=== PATIENT | female | born 1985 | race Caucasian/White ===

== ENCOUNTER → 2016-04-24 | Outpatient (CLI) | payer BC | LOC: LABWHC1 17:31 | PROVIDERS: ATTEND Obstetrics & Gynecology | DX: O20.0 Threatened abortion (principal); Z3A.00 Weeks of gestation of pregnancy not specified | CPT/HCPCS: 36415; 84702; 86850; 86900; 86901 ==

== ENCOUNTER → 2016-05-01 | Outpatient (CLI) | payer BC | END | disposition home or self-care (01) | LOC: LABWHC1 13:04 | PROVIDERS: ATTEND Family Medicine | DX: O03.9 Complete or unspecified spontaneous abortion without complication (principal) | CPT/HCPCS: 36415; 84702 ==

== ENCOUNTER → 2016-05-08 | Outpatient (CLI) | payer BC | LOC: LABWHC1 15:43 | PROVIDERS: ATTEND Family Medicine | DX: O03.9 Complete or unspecified spontaneous abortion without complication (principal); Z3A.00 Weeks of gestation of pregnancy not specified | CPT/HCPCS: 36415; 84702 ==

== ENCOUNTER → 2016-05-15 | Outpatient (CLI) | payer BC | LOC: LABWHC1 15:18 | PROVIDERS: ATTEND Family Medicine | DX: O03.9 Complete or unspecified spontaneous abortion without complication (principal); Z3A.00 Weeks of gestation of pregnancy not specified | CPT/HCPCS: 36415; 84702 ==

== ENCOUNTER → 2016-05-21 | Outpatient (CLI) | payer BC | LOC: LABWHC1 14:56 | PROVIDERS: ATTEND Family Medicine | DX: O03.9 Complete or unspecified spontaneous abortion without complication (principal); Z3A.00 Weeks of gestation of pregnancy not specified | CPT/HCPCS: 36415; 84702 ==

== ENCOUNTER → 2017-01-13 | Outpatient (CLI) | payer BC ==
[2017-01-13 17:24] LABS: Basophils % (A) 1 %; CH 25.9; CHCM 30.9; Eosinophils # (A) 0.5 k/uL (0-0.7); Eosinophils % (A) 6 %; HCT 39.8 % (34.0-46.0); HDW 2.07; HGB 12.5 gm/dL (11.4-16.0); Luc # (Auto) 0.28; Luc % (Auto) 4; Lymphocytes # (A) 2.7 k/uL (1.0-4.8); Lymphocytes % (A) 34 %; MCH 26.3 pg (25.0-35.0); MCHC 31.3 g/dL (31.0-37.0); MCV 84.1 fL (80.0-100.0); Mean Platelet Volume 8.9; Monocytes # (A) 0.8 k/uL (0-1.0); Monocytes % (A) 10 %; Neutrophils # (A) 3.7 k/uL (1.3-7.7); Neutrophils % (A) 46 %; RBC 4.74 m/uL (3.80-5.40); RDW 12.8 % (11.5-15.5); WBC (Perox) 8.23
[2017-01-13 17:49] LABS: ALT 44 U/L (9-52); AST 17 U/L (14-36); Alkaline Phosphatase 75 U/L (38-126); Anion Gap 10 mmol/L; Blood Urea Nitrogen 17 mg/dL (7-17); Calcium 9.2 mg/dL (8.4-10.2); Carbon Dioxide 26 mmol/L (22-30); Chloride 106 mmol/L (98-107); Glucose 75 mg/dL (74-99); Non-African American GFR(MDRD) >60 (>60 ml/min/1.73 sqM); Potassium 4.1 mmol/L (3.5-5.1); Sodium 142 mmol/L (137-145); Total Bilirubin 0.1 mg/dL (0.2-1.3); Total Protein 6.7 g/dL (6.3-8.2)
== END | disposition home or self-care (01) ==
LOC: LABWHC1 16:12
PROVIDERS: ATTEND Family Medicine
DX: E04.9 Nontoxic goiter, unspecified (principal); R00.0 Tachycardia, unspecified
CPT/HCPCS: 36415; 80053; 84439; 84443; 84480; 85025

== ENCOUNTER → 2017-01-15 | Outpatient (CLI) | payer BC ==
--- NOTE | 2017-01-15 14:06 | US ---
EXAMINATION TYPE: US thyroid st tissue head/neck DATE OF EXAM: 01/15/2017 COMPARISON: NONE CLINICAL HISTORY: 31-year-old female E04.0 Enlarged Thyroid. TECHNIQUE: Multiple sonographic images of the thyroid gland are obtained. FINDINGS: Right Lobe: 4.6 x 1.2 x 1.8 cm Left Lobe: 5.4 x 1.7 x 2.0 cm Isthmus Thickness: 0.3 cm There is no discrete nodule. The thyroid gland parenchyma is diffusely heterogeneous and hyperemic. Bilateral neck scanned, no evidence of lymphadenopathy. IMPRESSION: 1. Borderline to mild thyromegaly with diffusely heterogeneous and hyperemic gland. Correlate for dif fuse thyroiditis. 2. No discrete nodule.
== END | disposition home or self-care (01) ==
LOC: RADUSWWP 13:29
PROVIDERS: ATTEND Family Medicine
DX: E01.0 Iodine-deficiency related diffuse (endemic) goiter (principal)
CPT/HCPCS: 76536

== ENCOUNTER → 2017-03-01 | Outpatient (CLI) | payer BC ==
[2017-03-01 14:21] LABS: HCT 42.6 % (34.0-46.0); HGB 13.8 gm/dL (11.4-16.0); MCH 26.6 pg (25.0-35.0); MCHC 32.5 g/dL (31.0-37.0); MCV 81.9 fL (80.0-100.0); Mean Platelet Volume 9.3; Platelet Count 220 k/uL (150-450); RDW 13.9 % (11.5-15.5); WBC 9.8 k/uL (3.8-10.6)
[2017-03-01 14:38] LABS: ALT 48 U/L (9-52); AST 22 U/L (14-36); Albumin 4.2 g/dL (3.5-5.0); Alkaline Phosphatase 86 U/L (38-126); Anion Gap 13 mmol/L; Blood Urea Nitrogen 18 mg/dL (7-17); Calcium 9.7 mg/dL (8.4-10.2); Carbon Dioxide 27 mmol/L (22-30); Chloride 102 mmol/L (98-107); Glucose 84 mg/dL (74-99); Potassium 3.9 mmol/L (3.5-5.1); Sodium 142 mmol/L (137-145); Total Bilirubin 0.3 mg/dL (0.2-1.3); Total Protein 7.2 g/dL (6.3-8.2)
[2017-03-02 14:12] LABS: Thyroid Stim Immun Quant 5.99 IU/L (<0.10)
== END | disposition home or self-care (01) ==
LOC: LABWHC1 13:53
PROVIDERS: ATTEND Internal Medicine
DX: E05.90 Thyrotoxicosis, unspecified without thyrotoxic crisis or storm (principal)
CPT/HCPCS: 36415; 80053; 83519; 84439; 84443; 84445; 84481; 85027; 86376

== ENCOUNTER → 2017-04-14 | Outpatient (CLI) | payer BC, MEDICAID ==
[2017-04-14 09:51] LABS: HCT 41.2 % (34.0-46.0); HGB 13.2 gm/dL (11.4-16.0); MCH 26.8 pg (25.0-35.0); MCV 83.7 fL (80.0-100.0); Mean Platelet Volume 8.1; Platelet Count 215 k/uL (150-450); RBC 4.92 m/uL (3.80-5.40); RDW 13.3 % (11.5-15.5); WBC 7.9 k/uL (3.8-10.6)
[2017-04-14 12:06] LABS: ALT 27 U/L (9-52); AST 15 U/L (14-36); Albumin 4.2 g/dL (3.5-5.0); Alkaline Phosphatase 77 U/L (38-126); Anion Gap 10 mmol/L; Blood Urea Nitrogen 11 mg/dL (7-17); Calcium 9.7 mg/dL (8.4-10.2); Carbon Dioxide 28 mmol/L (22-30); Chloride 105 mmol/L (98-107); Glucose 77 mg/dL (74-99); Potassium 4.1 mmol/L (3.5-5.1); Sodium 143 mmol/L (137-145); Total Bilirubin 0.7 mg/dL (0.2-1.3)
[2017-04-14 12:52] LABS: T4, Free (Free Thyroxine) 1.97 ng/dL (0.78-2.19)
== END | disposition home or self-care (01) ==
LOC: LABWHC1 09:26
PROVIDERS: ATTEND Internal Medicine
DX: E05.90 Thyrotoxicosis, unspecified without thyrotoxic crisis or storm (principal)
CPT/HCPCS: 36415; 80053; 84439; 84443; 84481; 85027

== ENCOUNTER 2017-05-04 12:58 | Emergency (ER) | payer OTHER ==
[2017-05-04 13:33] VITALS: BP 150/84; PULSE 94; RESP 17; TEMP 97.3
--- NOTE | 2017-05-04 13:46 | ED ---
General Adult HPI - General Chief complaint: [place]/Exposure Stated complaint: [facility]-Exposure Time Seen by Provider: 05/04/17 13:22 Source: patient, RN notes reviewed Mode of arrival: ambulatory Limitations: no limitations - History of Present Illness Initial comments: This is a 32-year-old female who presents to the emergency department with chief complaint of post exposure. 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 She states that before presenting to the emergency department she was drawing an HIV-positive patient. She states that while he was speaking he spit and it touched her lips and may have entered her mouth. She states that initially she just wiped it away with her hand and scrubs. When patient left the lab she then wiped her mouth with an alcohol swab. Denies fever, chills, chest pain, shortness of breath, abdominal pain, nausea or vomiting, constipation or diarrhea, dysuria or hematuria, numbness or tingling, headache or vision changes. - Related Data Home Medications Medication Instructions Recorded Confirmed Calcium Carbonate/Vitamin D3 1 tab PO DAILY 02/18/15 02/18/15 [Calcium 600 + Vit D Tablet] Pnv,Calcium 72/Iron/Folic Acid 1 tab PO DAILY 02/18/15 02/18/15 [Pnv Plus Multivit Tab] Previous Rx's Medication Instructions Recorded Acetaminophen-Codeine 300-30mg 2 each PO Q4HR PRN #30 tab 02/20/15 [Tylenol w/codeine #3] Ibuprofen [Motrin] 600 mg PO Q6HR PRN #30 tab 02/20/15 Allergies Allergy/AdvReac Type Severity Reaction Status Date / Time No Known Allergies Allergy Verified 02/18/15 06:26 Review of Systems ROS Statement: Those systems with pertinent positive or pertinent negative responses have been documented in the HPI. ROS Other: All systems not noted in ROS Statement are negative. Past Medical History Past Medical History: Thyroid Disorder Additional Past Medical History / Comment(s): Graves disease History of Any Multi-Drug Resistant Organisms: None Reported Past Surgical History: Section Past Anesthesia/Blood Transfusion Reactions: No Reported Reaction Past Psychological History: No Psychological Hx Reported Smoking Status: Never smoker Past Alcohol Use History: None Reported Past Drug Use History: None Reported - Past Family History Mother Family Medical History: No Reported History General Exam - General Exam Comments Initial Comments: General: Awake and alert, well-developed; in no apparent distress. HEENT: Head atraumatic, normocephalic. Pupils are equal, round and reactive to light. Extraocular movements intact. Oropharynx moist without erythema or exudate. Neck: Supple. Normal ROM. Cardiovascular: Regular rate and rhythm. No murmurs, rubs or gallops. Chest symmetrical. Respiratory: Lungs clear to auscultation bilaterally. No wheezes, rales or rhonchi. Normal respiratory effort with no use of accessory muscles. Musculoskeletal: Normal ROM, no tenderness bilateral upper and lower extremities. Ambulating normally. Skin: [place], warm and dry without rashes or lesions. Neurological: Alert and oriented x3. CN II-XII grossly intact. Speech is fluent and answers are appropriate. No focal neuro deficits. Psychiatric: Normal mood and affect. No overt signs of depression or anxiety noted. Limitations: no limitations Course Vital Signs 05/04/17 13:29 Temperature 97.3 F L Pulse Rate 94 Respiratory 17 Rate Blood Pressure 150/84 O2 Sat by Pulse 97 Oximetry Medical Decision Making - Medical Decision Making This is a 32-year-old female who presents for [facility] post-exposure evaluation. Patient came into contact with saliva of a patient who is HIV positive. Labs were drawn and are pending. Case was discussed with attending physician, Dr. Younger. Postexposure prophylaxis is not indicated. Patient is to follow-up with [facility] as instructed. She is in no acute distress and will be discharged. All questions answered. Disposition Clinical Impression: Exposure to blood or body fluid Disposition: HOME SELF-CARE Condition: Good Instructions: Body Substance Exposure (ED) Additional Instructions: Please follow-up with [facility]. Please follow up with primary care provider within 1 -2 days. Return to emergency department if symptoms should worsen or any concerns arise. Referrals: Nancy Calero DO [Primary Care Provider] - 1-2 days Time of Disposition: 13:41
== END 2017-05-04 13:57 | disposition home or self-care (01) ==
LOC: EC 12:58
DX: Z77.21 Contact with and (suspected) exposure to potentially hazardous body fluids (principal); Z79.899 Other long term (current) drug therapy; X58.XXXA Exposure to other specified factors, initial encounter; Y99.0 Civilian activity done for income or pay
CPT/HCPCS: 99282

== ENCOUNTER → 2017-06-01 | Outpatient (CLI) | payer MEDICAID ==
[2017-06-01 12:00] LABS: HCT 42.6 % (34.0-46.0); HGB 13.6 gm/dL (11.4-16.0); MCH 27.1 pg (25.0-35.0); MCV 84.5 fL (80.0-100.0); Mean Platelet Volume 8.6; Platelet Count 217 k/uL (150-450); RBC 5.04 m/uL (3.80-5.40); RDW 13.4 % (11.5-15.5); WBC 12.2 k/uL (3.8-10.6)
[2017-06-01 12:07] LABS: ALT 26 U/L (9-52); AST 17 U/L (14-36); Albumin 4.4 g/dL (3.5-5.0); Alkaline Phosphatase 90 U/L (38-126); Anion Gap 15 mmol/L; Blood Urea Nitrogen 14 mg/dL (7-17); Calcium 9.4 mg/dL (8.4-10.2); Carbon Dioxide 24 mmol/L (22-30); Chloride 103 mmol/L (98-107); Glucose 85 mg/dL (74-99); Sodium 142 mmol/L (137-145); Total Bilirubin 0.6 mg/dL (0.2-1.3); Total Protein 7.3 g/dL (6.3-8.2)
== END | disposition home or self-care (01) ==
LOC: LABWHC1 11:02
PROVIDERS: ATTEND Internal Medicine
DX: E05.90 Thyrotoxicosis, unspecified without thyrotoxic crisis or storm (principal)
CPT/HCPCS: 36415; 80053; 84439; 84443; 84481; 85027

== ENCOUNTER → 2017-09-28 | Outpatient (CLI) | payer MEDICAID ==
[2017-09-28 11:33] LABS: HCT 42.2 % (34.0-46.0); HGB 13.8 gm/dL (11.4-16.0); MCH 28.6 pg (25.0-35.0); MCHC 32.8 g/dL (31.0-37.0); MCV 87.3 fL (80.0-100.0); Platelet Count 191 k/uL (150-450); RBC 4.83 m/uL (3.80-5.40); RDW 12.4 % (11.5-15.5); WBC 8.2 k/uL (3.8-10.6)
[2017-09-28 12:12] LABS: ALT 29 U/L (9-52); AST 20 U/L (14-36); Albumin 4.5 g/dL (3.5-5.0); Alkaline Phosphatase 66 U/L (38-126); Anion Gap 9 mmol/L; Blood Urea Nitrogen 15 mg/dL (7-17); Calcium 9.6 mg/dL (8.4-10.2); Carbon Dioxide 25 mmol/L (22-30); Chloride 106 mmol/L (98-107); Glucose 84 mg/dL (74-99); Potassium 4.5 mmol/L (3.5-5.1); Sodium 140 mmol/L (137-145); Total Bilirubin 0.6 mg/dL (0.2-1.3); Total Protein 7.4 g/dL (6.3-8.2)
[2017-09-28 12:18] LABS: T4, Free (Free Thyroxine) 1.32 ng/dL (0.78-2.19)
[2017-09-28 17:36] LABS: Vitamin D 25 Hydroxy 26.7 ng/mL (30.0-100.0)
== END | disposition home or self-care (01) ==
LOC: LABWHC1 10:21
PROVIDERS: ATTEND Internal Medicine
DX: E55.9 Vitamin D deficiency, unspecified (principal); E05.90 Thyrotoxicosis, unspecified without thyrotoxic crisis or storm; R53.82 Chronic fatigue, unspecified
CPT/HCPCS: 36415; 80053; 82306; 82607; 84439; 84443; 84481; 85027

== ENCOUNTER → 2017-12-24 | Outpatient (CLI) | payer MEDICAID ==
[2017-12-24 06:53] LABS: HCT 43.3 % (34.0-46.0); HGB 14.1 gm/dL (11.4-16.0); MCH 28.7 pg (25.0-35.0); MCHC 32.5 g/dL (31.0-37.0); MCV 88.1 fL (80.0-100.0); Mean Platelet Volume 8.6; Platelet Count 195 k/uL (150-450); RBC 4.91 m/uL (3.80-5.40); WBC 6.9 k/uL (3.8-10.6)
[2017-12-24 12:00] LABS: ALT 19 U/L (8-44); AST 21 U/L (13-35); Albumin/Globulin Ratio 1.95 (1.20-2.10); Alkaline Phosphatase 66 U/L (41-126); Calcium 9.2 mg/dL (8.7-10.3); Carbon Dioxide 24.6 mmol/L (21.6-31.8); Chloride 108 mmol/L (96-109); Globulin 2.2 g/dL (2.1-3.7); Glucose 86 mg/dL (70-110); Potassium 4.1 mmol/L (3.5-5.5); Sodium 140 mmol/L (135-145); Total Bilirubin 0.7 mg/dL (0.3-1.2); Total Protein 6.5 g/dL (6.2-8.2)
== END | disposition home or self-care (01) ==
LOC: LABWHC1 06:31
PROVIDERS: ATTEND Internal Medicine
DX: E05.90 Thyrotoxicosis, unspecified without thyrotoxic crisis or storm (principal); E55.9 Vitamin D deficiency, unspecified
CPT/HCPCS: 36415; 80053; 82306; 84439; 84443; 84481; 85027

== ENCOUNTER → 2018-04-05 | Outpatient (CLI) | payer MEDICAID ==
[2018-04-05 13:42] LABS: HGB 12.5 gm/dL (11.4-16.0); MCH 29.9 pg (25.0-35.0); MCHC 32.9 g/dL (31.0-37.0); MCV 90.8 fL (80.0-100.0); Mean Platelet Volume 8.8; Platelet Count 198 k/uL (150-450); RBC 4.19 m/uL (3.80-5.40); RDW 13.9 % (11.5-15.5); WBC 10.7 k/uL (3.8-10.6)
[2018-04-05 18:46] LABS: Albumin 4.3 g/dL (3.80-4.90); Albumin/Globulin Ratio 1.87 (1.60-3.17); Anion Gap 6.2 mmol/L (4.00-12.00); Calcium 9.2 mg/dL (8.7-10.3); Carbon Dioxide 27.8 mmol/L (21.6-31.8); Globulin 2.3 g/dL (1.6-3.3); Potassium 3.9 mmol/L (3.5-5.5); Total Bilirubin 0.4 mg/dL (0.2-1.2); Total Protein 6.6 g/dL (6.2-8.2)
== END | disposition home or self-care (01) ==
LOC: LABWHC1 12:20
PROVIDERS: ATTEND Internal Medicine
DX: E05.90 Thyrotoxicosis, unspecified without thyrotoxic crisis or storm (principal)
CPT/HCPCS: 36415; 80053; 84439; 84443; 84481; 85027

== ENCOUNTER → 2019-12-20 | Outpatient (CLI) | payer MEDICAID ==
--- NOTE | 2019-12-21 11:57 | NM ---
EXAMINATION TYPE: NM thyroid image w uptake DATE OF EXAM: 12/21/2019 COMPARISON: Thyroid ultrasound 01/15/2017 HISTORY: Thyrotoxicosis with diffuse goiter Graves' disease. TECHNIQUE: Thyroid iodine uptake is calculated and images performed after the oral administration of 298 uCi 1-123 Capsule. FINDINGS: There is normal distribution of activity throughout the gland. The 4 hour iodine uptake is calculated at 39.9% (normal range 8-14%). The 24-hour iodine uptake is calculated at 60.5% (normal r elisha 15-35%). IMPRESSION: Increased iodine uptake and heterogenous enlarged thyroid. Findings are consistent with history of Gr aves' disease.
== END | disposition home or self-care (01) ==
LOC: RADNMMAIN 09:45
PROVIDERS: ATTEND Internal Medicine Endocrinology, Diabetes & Metabolism
DX: E04.9 Nontoxic goiter, unspecified (principal); E05.00 Thyrotoxicosis with diffuse goiter without thyrotoxic crisis or storm
CPT/HCPCS: 78014; A9516

== ENCOUNTER → 2020-02-20 | Outpatient (CLI) | payer MEDICAID ==
[2020-02-20 17:14] LABS: HCT 38.7 % (34.0-46.0); HGB 12.7 gm/dL (11.4-16.0); MCH 27.8 pg (25.0-35.0); MCHC 32.7 g/dL (31.0-37.0); MCV 84.9 fL (80.0-100.0); Mean Platelet Volume 9.5; Platelet Count 197 k/uL (150-450); RBC 4.56 m/uL (3.80-5.40); RDW 13.3 % (11.5-15.5); WBC 12.2 k/uL (3.8-10.6)
[2020-02-21 09:18] LABS: ALT 39 U/L (8-44); AST 28 U/L (13-35)
== END | disposition home or self-care (01) ==
LOC: LABWHC1 15:33
PROVIDERS: ATTEND Internal Medicine Endocrinology, Diabetes & Metabolism
DX: E05.00 Thyrotoxicosis with diffuse goiter without thyrotoxic crisis or storm (principal); R00.0 Tachycardia, unspecified
CPT/HCPCS: 36415; 84439; 84443; 84450; 84460; 84481; 85027

== ENCOUNTER → 2020-04-03 | Outpatient (CLI) | payer MEDICAID | END | disposition home or self-care (01) | LOC: LABWHC1 15:48 | PROVIDERS: ATTEND Internal Medicine Endocrinology, Diabetes & Metabolism | DX: E05.00 Thyrotoxicosis with diffuse goiter without thyrotoxic crisis or storm (principal); R00.0 Tachycardia, unspecified | CPT/HCPCS: 36415; 84439; 84443; 84481 ==

== ENCOUNTER → 2020-05-21 | Outpatient (CLI) | payer MEDICAID ==
[2020-05-21 11:18] LABS: Appearance,Urine Clear (Clear); Bilirubin,Urine Negative (Negative); Blood,Urine Negative (Negative); Color,Urine Light Yellow; Glucose,Urine (UA) Negative (Negative); Ketones,Urine Negative (Negative); Leukocyte Esterase,Urine Moderate (Negative); Mucus,Urine Rare /hpf; Nitrite,Urine Negative (Negative); Protein,Urine Negative (Negative); RBC,Urine 2 /hpf (0-5); Specific Gravity,Urine 1.011 (1.001-1.035); Squamous Epithelial Cell,Urine 4 /hpf (0-4); Urobilinogen,Urine <2.0 mg/dL (<2.0); WBC,Urine <1 /hpf (0-5)
[2020-05-21 16:53] LABS: Basophils # (A) 0.05 X 10*3/uL (0.00-0.10); Basophils % (A) 0.6 %; Eosinophils % (A) 1.1 %; HCT 37.5 % (37.2-46.3); HGB 11.8 g/dL (12.0-15.0); Lymphocytes % (A) 30.9 %; MCH 27.3 pg (27.0-32.0); MCHC 31.5 g/dL (32.0-37.0); MCV 86.6 fL (80.0-97.0); Mean Platelet Volume 13.1 fL (9.5-12.2); Neutrophils # (A) 5.08 X 10*3/uL (1.80-7.70); Neutrophils % (A) 56.2 %; Platelet Count 210 X 10*3/uL (140-440); RBC 4.33 X 10*6/uL (4.10-5.20); RDW 14.8 % (11.5-14.5); WBC 9.05 X 10*3/uL (4.50-10.00)
== END | disposition home or self-care (01) ==
LOC: LABWHC1 10:21
PROVIDERS: ATTEND Surgery
DX: N39.0 Urinary tract infection, site not specified (principal)
CPT/HCPCS: 36415; 81001; 85025

== ENCOUNTER → 2020-05-22 | Outpatient (CLI) | payer MEDICAID ==
--- NOTE | 2020-05-22 12:11 | XR ---
EXAMINATION TYPE: XR lumbosacral spine min 4V DATE OF EXAM: 05/22/2020 CLINICAL HISTORY: pain COMPARISON: NONE TECHNIQUE: Frontal, lateral, and oblique images of the lumbar spine are obtained. FINDINGS: There are 5 lumbar type vertebral bodies identified. The lumbar spine shows satisfactory alignment without evidence of acute fracture or dislocation. Vertebral body heights are within normal limits. Disc spaces are well preserved. The overlying soft tissue appears unremarkable. IMPRESSION: No acute fracture or dislocation is seen in the lumbar spine.ICD 10 NO FRACTURE, INITIAL EVALUATION
== END | disposition home or self-care (01) ==
LOC: RADXRMAIN 11:44
PROVIDERS: ATTEND Family Medicine
DX: M54.5 Low back pain (principal)
CPT/HCPCS: 72110

== ENCOUNTER → 2020-05-27 | Outpatient (CLI) | payer MEDICAID ==
--- NOTE | 2020-05-27 10:22 | MR ---
EXAMINATION TYPE: MR iac wo/w con DATE OF EXAM: 05/27/2020 COMPARISON: HISTORY: High pitched ringing in left ear, Hearing loss in left side when that happens, intermittent. Left sided headaches. TECHNIQUE: Multiplanar, multisequence images of the brain and brainstem is performed without and with IV contras t, utilizing 8.5 mL intravenous Gadavist . FINDINGS: Diffusion weighted images demonstrate no evidence of a recent infarct or other diffusion ab normality. Single tiny area of abnormal signal within the white matter measuring less than 5 mm of do ubtful significance.. The ventricular system and cisternal spaces are normal in size and appearance. The brain volume is age appropriate. Midline structures demonstrate normal morphology. Cerebellar tonsils low-lying at the position of the foramen magnum.. Post contrast images demonstrate no abnormal enhancement. Faint enhancement overly ing the medulla appears artifactual. Short-term follow-up exam in 6-12 months to be obtained enhancem ent is not repeated on the IACs postcontrast images. Findings are felt to be artifactual. The dural venous sinuses appear patent. No evidence of cerebellopontine angle mass. Changes of mild chronic sinusitis. Orbits symmetric. Trace amount of fluid surrounding the optic nerve. No orbital fl attening. IMPRESSION: 1. No evidence of cerebellopontine angle mass or acoustic schwannoma. 2. Mild chronic sinusitis 3. Low-lying cerebellar tonsils at the level of the foramen magnum. No tonsillar. 4. Symmetric small amount of fluid surrounding the optic nerves can be physiologic correlate with cli nical exam to exclude papilledema or increased intracranial pressure.
== END | disposition home or self-care (01) ==
LOC: RADMRIMAIN 08:39
PROVIDERS: ATTEND Otolaryngology
DX: H93.12 Tinnitus, left ear (principal); J32.9 Chronic sinusitis, unspecified
CPT/HCPCS: 70553; A9585

== ENCOUNTER → 2020-06-05 | Outpatient (CLI) | payer MEDICAID ==
[2020-06-05 17:08] LABS: ALT 14 U/L (8-44); AST 13 U/L (13-35); African American GFR (CKD) 96.7 (60.0-200.0); Albumin/Globulin Ratio 2.05 (1.60-3.17); Alkaline Phosphatase 72 U/L (41-126); Calcium 9.4 mg/dL (8.7-10.3); Carbon Dioxide 26.6 mmol/L (21.6-31.8); Chloride 106 mmol/L (96-109); Chol/HDL Ratio 2.58; Cholesterol 155 mg/dL (0-200); Globulin 2.2 g/dL (1.6-3.3); Glucose 93 mg/dL (70-110); Non-African American GFR(CKD) 83.4 (60.0-200.0); Potassium 4.4 mmol/L (3.5-5.5); Sodium 139 mmol/L (135-145); Total Bilirubin 0.4 mg/dL (0.3-1.2); Total Protein 6.7 g/dL (6.2-8.2); Triglycerides <50.0 mg/dL (0.0-149.0)
[2020-06-05 18:48] LABS: Basophils # (A) 0.04 X 10*3/uL (0.00-0.10); Basophils % (A) 0.4 %; Eosinophils # (A) 0.08 X 10*3/uL (0.04-0.35); Eosinophils % (A) 0.9 %; HCT 40.1 % (37.2-46.3); HGB 12.2 g/dL (12.0-15.0); Lymphocytes # (A) 2.46 X 10*3/uL (0.90-5.00); Lymphocytes % (A) 26.6 %; MCH 26.9 pg (27.0-32.0); MCHC 30.4 g/dL (32.0-37.0); MCV 88.5 fL (80.0-97.0); Mean Platelet Volume 12.7 fL (9.5-12.2); Monocytes # (A) 0.76 X 10*3/uL (0.20-1.00); Monocytes % (A) 8.2 %; Neutrophils # (A) 5.87 X 10*3/uL (1.80-7.70); Neutrophils % (A) 63.6 %; Platelet Count 180 X 10*3/uL (140-440); RBC 4.53 X 10*6/uL (4.10-5.20); RDW 15.2 % (11.5-14.5); WBC 9.24 X 10*3/uL (4.50-10.00)
[2020-06-05 21:09] LABS: Erythrocyte Sedimentation Rate 6 mm/Hr (0-20)
== END | disposition home or self-care (01) ==
LOC: LABWHC1 07:28
PROVIDERS: ATTEND Internal Medicine Endocrinology, Diabetes & Metabolism
DX: Z00.00 Encounter for general adult medical examination without abnormal findings (principal); E05.00 Thyrotoxicosis with diffuse goiter without thyrotoxic crisis or storm; R00.0 Tachycardia, unspecified; L65.9 Nonscarring hair loss, unspecified
CPT/HCPCS: 36415; 80053; 80061; 82306; 82607; 84439; 84443; 84481; 85025; 85652; 86038

== ENCOUNTER → 2020-09-13 | Outpatient (CLI) | payer MEDICAID ==
[2020-09-13 20:19] LABS: HCT 37.8 % (37.2-46.3); HGB 12.2 g/dL (12.0-15.0); MCH 28.7 pg (27.0-32.0); MCHC 32.3 g/dL (32.0-37.0); MCV 88.9 fL (80.0-97.0); Mean Platelet Volume 13.7 fL (9.5-12.2); Platelet Count 201 X 10*3/uL (140-440); RBC 4.25 X 10*6/uL (4.10-5.20); RDW 14.4 % (11.5-14.5); WBC 11.36 X 10*3/uL (4.50-10.00)
[2020-09-14 00:07] LABS: T4, Free (Free Thyroxine) 1.1 ng/dL (0.80-1.80)
== END | disposition home or self-care (01) ==
LOC: LABWHC1 13:58
PROVIDERS: ATTEND Internal Medicine Endocrinology, Diabetes & Metabolism
DX: E05.00 Thyrotoxicosis with diffuse goiter without thyrotoxic crisis or storm (principal)
CPT/HCPCS: 36415; 84439; 84443; 84450; 84460; 85027

== ENCOUNTER → 2021-05-21 | Outpatient (CLI) | payer OTHER ==
[2021-05-21 22:49] LABS: HCT 38.7 % (37.2-46.3); HGB 12.1 g/dL (12.0-15.0); MCH 26.9 pg (27.0-32.0); MCHC 31.3 g/dL (32.0-37.0); Mean Platelet Volume 12.9 fL (9.5-12.2); NRBC Per 100 WBC 0 /100 WBCS (0.0-0.0); Platelet Count 201 X 10*3/uL (140-440); RDW 14.2 % (11.5-14.5); WBC 9.81 X 10*3/uL (4.50-10.00)
[2021-05-22 02:18] LABS: T4, Free (Free Thyroxine) 1.21 ng/dL (0.800-1.800)
== END | disposition home or self-care (01) ==
LOC: LABWHC1 14:56
PROVIDERS: ATTEND Internal Medicine Endocrinology, Diabetes & Metabolism
DX: E05.00 Thyrotoxicosis with diffuse goiter without thyrotoxic crisis or storm (principal)
CPT/HCPCS: 36415; 82607; 84439; 84443; 84450; 84460; 85027

== ENCOUNTER → 2021-09-22 | Outpatient (CLI) | payer OTHER ==
[2021-09-22 23:04] LABS: HCT 37.6 % (37.2-46.3); HGB 11.5 g/dL (12.0-15.0); MCH 27.2 pg (27.0-32.0); MCHC 30.6 g/dL (32.0-37.0); MCV 88.9 fL (80.0-97.0); Mean Platelet Volume 13.5 fL (9.5-12.2); NRBC Per 100 WBC 0 /100 WBCS (0.0-0.0); Platelet Count 178 X 10*3/uL (140-440); RBC 4.23 X 10*6/uL (4.10-5.20); RDW 13.7 % (11.5-14.5); WBC 9.04 X 10*3/uL (4.50-10.00)
[2021-09-22 23:16] LABS: ALT 12 U/L (8-44); AST 15 U/L (13-35); Albumin 4.2 g/dL (3.8-4.9); Albumin/Globulin Ratio 1.78 (1.60-3.17); Alkaline Phosphatase 58 U/L (41-126); BUN/Creat Ratio 17.47 Ratio (12.00-20.00); Calcium 9.1 mg/dL (8.7-10.3); Carbon Dioxide 25.9 mmol/L (20.0-27.5); Chloride 104 mmol/L (96-109); Chol/HDL Ratio 2.94 Ratio; Globulin 2.4 g/dL (1.6-3.3); Glucose 89 mg/dL (70-110); LDL Cholesterol,Calculated 68.7 mg/dL (0.0-131.0); Non-African American GFR(CKD) 81.1 (60.0-200.0); Potassium 4.3 mmol/L (3.5-5.5); Sodium 139 mmol/L (135-145); Total Protein 6.6 g/dL (6.2-8.2)
== END | disposition home or self-care (01) ==
LOC: LABWHC1 15:23
PROVIDERS: ATTEND Internal Medicine Endocrinology, Diabetes & Metabolism
DX: Z13.228 Encounter for screening for other metabolic disorders (principal); R68.89 Other general symptoms and signs; Z13.220 Encounter for screening for lipoid disorders
CPT/HCPCS: 36415; 80053; 80061; 84439; 84443; 85027

== ENCOUNTER → 2021-11-14 | Outpatient (CLI) | payer OTHER | END | disposition home or self-care (01) | LOC: LABWHC1 15:43 | PROVIDERS: ATTEND Internal Medicine Endocrinology, Diabetes & Metabolism | DX: E05.00 Thyrotoxicosis with diffuse goiter without thyrotoxic crisis or storm (principal) | CPT/HCPCS: 36415; 83540 ==

== ENCOUNTER → 2022-01-05 | Outpatient (CLI) | payer OTHER ==
--- NOTE | 2022-01-05 15:51 | USB ---
Reason for Exam: Clinical finding. Risk Values: Therese 5 year model risk: 0.2%. NCI Lifetime model risk: 6.9%. Technique: Method: Whole Breast Handheld. Findings: The whole breast of the left breast, the axilla of the left breast and the retroareolar of the left breast were scanned. A complete US of all four quadrants of the breast and retro-areolar region were reviewed. No solid or cystic masses are identified on images saved. No concerning focal fluid collection seen. A few benign-appearing left axillary lymph nodes noted towards the end of study. Overall Assessment: Negative, BI-RAD 1 Management: Screening Mammogram of both breasts at age 41. Managed clinically patient's symptoms of left-sided axillary pain. Results were given to the patient verbally at the time of exam. Electronically signed and approved by: Marvin Yates M.D.
== END | disposition home or self-care (01) ==
LOC: RADUSWWP 15:24
PROVIDERS: ATTEND Family Medicine
DX: M79.622 Pain in left upper arm (principal)

== ENCOUNTER → 2022-09-04 | Outpatient (CLI) | payer BC ==
[2022-09-04 20:10] LABS: HCT 39.6 % (37.2-46.3); HGB 12.5 d/dL (12.0-15.0); MCH 27.8 pg (27.0-32.0); MCHC 31.6 d/dL (32.0-37.0); MCV 88.2 FL (80.0-97.0); Mean Platelet Volume 13.5 FL (9.5-12.2); NRBC Per 100 WBC 0 X 10*3/uL (0.00-0.01); Platelet Count 192 X 10*3/uL (140-440); RBC 4.49 X 10*6/uL (4.10-5.20); RDW 15.3 % (11.5-14.5)
[2022-09-04 20:19] LABS: % Iron Saturation 12.78 (12.00-45.00); Ferritin 19.8 ng/mL (10.0-291.0); T4, Free (Free Thyroxine) 1.2 ng/dL (0.80-1.80)
== END | disposition home or self-care (01) ==
LOC: LABWHC1 12:58
PROVIDERS: ATTEND Internal Medicine Endocrinology, Diabetes & Metabolism
DX: E05.00 Thyrotoxicosis with diffuse goiter without thyrotoxic crisis or storm (principal)
CPT/HCPCS: 36415; 82728; 83540; 83550; 84439; 84443; 84450; 84460; 85027

== ENCOUNTER → 2023-03-20 | Outpatient (CLI) | payer BC ==
[2023-03-20 13:09] LABS: Basophils # (A) 0.07 X 10*3/uL (0.00-0.10); Basophils % (A) 0.9 %; Eosinophils # (A) 0.16 X 10*3/uL (0.04-0.35); Eosinophils % (A) 1.9 %; HCT 41.8 % (37.2-46.3); HGB 13.5 g/dL (12.0-15.0); Lymphocytes # (A) 2.17 X 10*3/uL (0.90-5.00); Lymphocytes % (A) 26.4 %; MCH 28.5 pg (27.0-32.0); MCHC 32.3 g/dL (32.0-37.0); MCV 88.4 FL (80.0-97.0); Mean Platelet Volume 12.8 FL (9.5-12.2); Monocytes # (A) 0.67 X 10*3/uL (0.20-1.00); Monocytes % (A) 8.2 %; NRBC Per 100 WBC 0 X 10*3/uL (0.00-0.01); Neutrophils # (A) 5.13 X 10*3/uL (1.80-7.70); Neutrophils % (A) 62.4 %; Platelet Count 221 X 10*3/uL (140-440); RBC 4.73 X 10*6/uL (4.10-5.20); RDW 13.2 % (11.5-14.5); WBC 8.22 X 10*3/uL (4.50-10.00)
[2023-03-20 13:33] LABS: ALT 19 U/L (8-44); AST 15 U/L (13-35); Albumin 4.4 g/dL (3.8-4.9); Albumin/Globulin Ratio 1.63 Ratio (1.60-3.17); Alkaline Phosphatase 67 U/L (41-126); BUN/Creat Ratio 10.89 Ratio (12.00-20.00); Blood Urea Nitrogen 9.8 mg/dL (9.0-27.0); Calcium 9.7 mg/dL (8.7-10.3); Carbon Dioxide 26.3 mmol/L (21.6-31.8); Chloride 101 mmol/L (96-109); Chol/HDL Ratio 2.95 Ratio; Globulin 2.7 g/dL (1.6-3.3); Glucose 97 mg/dL (70-110); LDL Cholesterol,Calculated 86.3 mg/dL (0.0-131.0); Potassium 4.2 mmol/L (3.5-5.5); Sodium 137 mmol/L (135-145); T4, Free (Free Thyroxine) 1.15 ng/dL (0.80-1.80); Total Bilirubin 0.5 mg/dL (0.3-1.2); Total Protein 7.1 g/dL (6.2-8.2); VLDL Calculation 18.08 mg/dL (5.00-40.00)
== END | disposition home or self-care (01) ==
LOC: LABWHC1 08:15
PROVIDERS: ATTEND Internal Medicine Endocrinology, Diabetes & Metabolism
DX: E05.00 Thyrotoxicosis with diffuse goiter without thyrotoxic crisis or storm (principal); D50.9 Iron deficiency anemia, unspecified
CPT/HCPCS: 36415; 80053; 80061; 83036; 84439; 84443; 85025

== ENCOUNTER → 2024-05-02 | Outpatient (CLI) | payer OTHER ==
[2024-05-02 18:49] LABS: HCT 36.4 % (37.2-46.3); HGB 11.8 g/dL (12.0-15.0); MCH 25.7 pg (27.0-32.0); MCHC 32.4 g/dL (32.0-37.0); MCV 79.3 FL (80.0-97.0); Mean Platelet Volume 12.4 FL (9.5-12.2); NRBC Per 100 WBC 0 X 10*3/uL (0.00-0.01); Platelet Count 223 X 10*3/uL (140-440); RBC 4.59 X 10*6/uL (4.10-5.20); RDW 13.3 % (11.5-14.5); WBC 9.99 X 10*3/uL (4.50-10.00)
[2024-05-02 19:22] LABS: ALT 18 U/L (8-44); AST 14 U/L (13-35)
== END | disposition home or self-care (01) ==
LOC: LABWHC1 15:29
PROVIDERS: ATTEND Internal Medicine Endocrinology, Diabetes & Metabolism
DX: E05.00 Thyrotoxicosis with diffuse goiter without thyrotoxic crisis or storm (principal)
CPT/HCPCS: 36415; 84439; 84443; 84450; 84460; 85027

== ENCOUNTER → 2024-08-21 | Outpatient (CLI) | payer OTHER ==
[2024-08-21 19:22] LABS: HCT 42.3 % (37.2-46.3); MCH 27.3 pg (27.0-32.0); MCHC 33.1 g/dL (32.0-37.0); MCV 82.6 FL (80.0-97.0); Mean Platelet Volume 12.7 FL (9.5-12.2); NRBC Per 100 WBC 0 X 10*3/uL (0.00-0.01); Platelet Count 231 X 10*3/uL (140-440); RBC 5.12 X 10*6/uL (4.10-5.20); RDW 13.7 % (11.5-14.5); WBC 11.18 X 10*3/uL (4.50-10.00)
[2024-08-21 19:36] LABS: ALT 22 U/L (8-44); AST 15 U/L (13-35); T4, Free (Free Thyroxine) 2.49 ng/dL (0.80-1.80)
== END | disposition home or self-care (01) ==
LOC: LABWHC1 14:51
PROVIDERS: ATTEND Internal Medicine Endocrinology, Diabetes & Metabolism
DX: E05.00 Thyrotoxicosis with diffuse goiter without thyrotoxic crisis or storm (principal)
CPT/HCPCS: 36415; 84439; 84443; 84450; 84460; 84481; 85027

== ENCOUNTER → 2024-09-16 | Outpatient (CLI) | payer OTHER ==
[2024-09-16 14:43] LABS: Basophils # (A) 0.02 X 10*3/uL (0.00-0.10); Basophils % (A) 0.3 %; Eosinophils # (A) 0.01 X 10*3/uL (0.04-0.35); Eosinophils % (A) 0.1 %; HCT 42.3 % (37.2-46.3); HGB 13.3 g/dL (12.0-15.0); Immature Grans, Automated 0.10 %; Lymphocytes # (A) 2.42 X 10*3/uL (0.90-5.00); Lymphocytes % (A) 31.4 %; MCH 26.4 pg (27.0-32.0); MCHC 31.4 g/dL (32.0-37.0); MCV 83.9 FL (80.0-97.0); Monocytes # (A) 0.79 X 10*3/uL (0.20-1.00); Monocytes % (A) 10.2 %; NRBC Per 100 WBC 0 X 10*3/uL (0.00-0.01); Neutrophils # (A) 4.46 X 10*3/uL (1.80-7.70); Neutrophils % (A) 57.9 %; Platelet Count 222 X 10*3/uL (140-440); RBC 5.04 X 10*6/uL (4.10-5.20); RDW 13.4 % (11.5-14.5); WBC 7.71 X 10*3/uL (4.50-10.00)
[2024-09-16 15:05] LABS: ALT 31 U/L (8-44); AST 19 U/L (13-35); Albumin 4.2 g/dL (3.8-4.9); Albumin/Globulin Ratio 1.91 Ratio (1.60-3.17); Alkaline Phosphatase 89 U/L (41-126); Anion Gap 12.00 mmol/L (4.00-12.00); BUN/Creat Ratio 19.00 Ratio (12.00-20.00); Blood Urea Nitrogen 13.3 mg/dL (9.0-27.0); Calcium 9.2 mg/dL (8.7-10.3); Carbon Dioxide 23.0 mmol/L (21.6-31.8); Chloride 104 mmol/L (96-109); Cholesterol 130.00 mg/dL (0.00-200.00); Globulin 2.2 g/dL (1.6-3.3); Glucose 100 mg/dL (70-110); HDL Cholesterol 51.90 mg/dL (40.00-60.00); Iron 107 UG/DL (50-170); LDL Cholesterol,Calculated 59.5 mg/dL (0.0-131.0); Potassium 4.7 mmol/L (3.5-5.5); Sodium 139 mmol/L (135-145); Total Protein 6.4 g/dL (6.2-8.2); Triglycerides 92.90 mg/dL (0.00-149.00); VLDL Calculation 18.58 mg/dL (5.00-40.00)
== END | disposition home or self-care (01) ==
LOC: LABWHC1 09:19
PROVIDERS: ATTEND Family Medicine
DX: Z00.00 Encounter for general adult medical examination without abnormal findings (principal); I10 Essential (primary) hypertension; E05.00 Thyrotoxicosis with diffuse goiter without thyrotoxic crisis or storm; D64.9 Anemia, unspecified; M10.9 Gout, unspecified; R73.03 Prediabetes
CPT/HCPCS: 36415; 80053; 80061; 83540; 84443; 85025